=== PATIENT | male | born 1960 | race Caucasian/White ===

== ENCOUNTER 2016-07-08 19:09 | Emergency (ER) | payer OTHER | END 2016-07-08 20:18 | disposition left against medical advice (07) | LOC: UCCORT 19:09 | DX: N39.9 Disorder of urinary system, unspecified (principal); Z53.21 Procedure and treatment not carried out due to patient leaving prior to being seen by health care provider ==

== ENCOUNTER 2016-07-09 15:59 | Emergency (ER) | payer OTHER ==
[2016-07-09 17:00] VITALS: BP 122/81
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
== END 2016-07-09 17:31 | disposition home or self-care (01) ==
LOC: UCCORT 15:59
DX: R10.32 Left lower quadrant pain (principal); Z90.49 Acquired absence of other specified parts of digestive tract
CPT/HCPCS: 99211; G0463

== ENCOUNTER 2022-01-19 05:34 | Observation (INO) ==
[2022-01-19] MEDS ORDERED: Buffered Lidocaine 1% SYRIN 1 ml INTRADERM ONE ×2 (06:00→06:06)
[2022-01-19] MEDS ORDERED: Lactated Ringers 1000 ml BAG 1,000 ML IV SCH (06:00)
[2022-01-19] MEDS ORDERED: ceFAZolin 2 GM PREMIX 2 GM/50 ML BAG ONE (06:06)
[2022-01-19] MEDS ORDERED: ROPIVACAINE 5 MG/ML 30 ML BTL (0.5%) ONE ×2 (06:48→07:17)
[2022-01-19] MEDS ORDERED: Propofol 10 MG/ML 20 ML BTL ONE (07:05)
[2022-01-19] MEDS ORDERED: fentaNYL 250 mcg/5 ml 50 MCG/ML 5 ml VIAL (250 MCG) ONE (07:05)
[2022-01-19] MEDS ORDERED: Lidocaine 2% PF 5 ML VIAL ONE ×2 (07:05→07:16)
[2022-01-19] MEDS ORDERED: fentaNYL 100 mcg/2 ml 50 MCG/ML VIAL ONE ×2 (07:16→11:11)
[2022-01-19] MEDS ORDERED: Midazolam 5 mg/5 ml VIAL 1 mg/ml 5 ml VIAL (5 mg) ONE (07:16)
[2022-01-19] MEDS ORDERED: Dexamethasone IV 4 MG/ML VIAL 1 ml VIAL ONE (08:00)
[2022-01-19] MEDS ORDERED: Ondansetron 4 mg VIAL 2 MG/ML 2 ml VIAL ONE ×2 (08:00→11:57)
[2022-01-19] MEDS ORDERED: Acetaminophen IV 1 GM/100ML 1,000 MG/100 ML BAG IV ONE (08:48)
[2022-01-19] MEDS ORDERED: HYDROmorphone 0.5 MG/0.5 ML SYRINGE ONE (09:09)
[2022-01-19] MEDS ORDERED: Lactulose 30 ml UDC PO PRN (10:53)
[2022-01-19] MEDS ORDERED: Ondansetron ODT 4 mg TAB 4 MG TAB PO PRN (10:53)
[2022-01-19] MEDS ORDERED: Magnesium Hydroxide LIQ 30 ML UDC PO PRN (10:53)
[2022-01-19] MEDS ORDERED: Ondansetron 4 mg VIAL 2 MG/ML 2 ml VIAL IV PRN ×2 (10:53→11:57)
[2022-01-19] MEDS ORDERED: HYDROmorphone 1 MG/1 ML SYRINGE ONE (11:11)
[2022-01-19] MEDS: fentaNYL 100 mcg/2 ml 50 MCG/ML VIAL IV PRN ×2 (11:14→11:24)
[2022-01-19] MEDS ORDERED: Naloxone 0.4 mg VIAL 0.4 mg/ml 1 ml VIAL IV PRN (11:16)
[2022-01-19] MEDS ORDERED: HYDROmorphone 1 MG/1 ML SYRINGE IV PRN (11:18)
[2022-01-19] MEDS ORDERED: Scopolamine 1 mg/72hr PATCH TRANSDERM PRN (11:57)
[2022-01-19] MEDS ORDERED: Scopolamine 1 mg/72hr PATCH ONE (12:24)
[2022-01-19] MEDS ORDERED: Labetalol IV 5 MG/ML 20 ml VIAL ONE (12:34)
[2022-01-19] MEDS ORDERED: Labetalol IV 5 MG/ML 20 ml VIAL IV PUSH ONE (12:38)
[2022-01-19] MEDS: Lactated Ringers 1000 ml BAG 1,000 ML IV SCH (14:35)
[2022-01-19] MEDS ORDERED: Lisinopril/HCTZ 20/25 TAB (NF) PO SCH ×2 (15:00→18:00)
[2022-01-19] MEDS: ceFAZolin 1 GM ADVAN 1 GM in NS 0.9% 50 ML 50 ML IVPB SCH (17:24)
[2022-01-19] MEDS: Magnesium Hydroxide LIQ 30 ML UDC PO SCH (21:04)
[2022-01-20] MEDS: ceFAZolin 1 GM ADVAN 1 GM in NS 0.9% 50 ML 50 ML IVPB SCH ×2 (02:14→09:01)
[2022-01-20] MEDS: Lactated Ringers 1000 ml BAG 1,000 ML IV SCH (05:08)
[2022-01-20 05:36] LABS: Hematocrit 34 % (42-52); Hemoglobin 11.9 g/dL (14.0-18.0); Mean Platelet Volume 8.4 fL (7.4-10.4); Platelet Count 140 10^3/uL (150-450)
[2022-01-20 06:43] LABS: Calcium 8.2 mg/dL (8.6-10.3); Potassium 3.9 mmol/L (3.5-5.0)
[2022-01-20 07:05] LABS: eGFR CKD-EPI 99.1 (>60)
[2022-01-20 07:36] VITALS: BP 103/63
[2022-01-20] MEDS ORDERED: Vitamin THERAPEUTIC TAB PO SCH (09:00)
[2022-01-20] MEDS ORDERED: Lisinopril/HCTZ 20/25 TAB (NF) PO SCH (09:00)
[2022-01-20] MEDS: Magnesium Hydroxide LIQ 30 ML UDC PO SCH (09:01)
== END 2022-01-20 10:45 | disposition home or self-care (01) ==
LOC: AA 05:34 → INTOOBSV 05:34 → SSU 14:29
PROVIDERS: ADMIT Orthopaedic Surgery Adult Reconstructive Orthopaedic Surgery; ATTEND Orthopaedic Surgery Adult Reconstructive Orthopaedic Surgery